=== PATIENT | male | born 1970 | race Caucasian/White ===

== ENCOUNTER 2016-11-14 07:14 | Emergency (ER) | payer MEDICARE, MEDICAID ==
[~2016-11-14] VITALS: Ht 182.9 cm; Wt 72.6 kg
[~2016-11-14 07:14] MED LIST: ESOM40CA PO; RANI150T12 PO
[2016-11-14] MEDS ORDERED: NEURONTIN (07:24)
[2016-11-14] MEDS ORDERED: ADDERALL (07:24)
[2016-11-14] MEDS ORDERED: SERT50TA14 (07:24)
[2016-11-14] MEDS ORDERED: XANAX (07:24)
[2016-11-14] MEDS ORDERED: CLINDAMYCIN HCL 150 MG CAPSULE PO ONE (08:00)
--- NOTE | 2016-11-14 08:10 | NUR ---
PT WAS EVALUATED BY DR LLANOS. PT WAS D/C TO HOME AFTER EVALUATION. D/C INSTRUCTIONS GIVEN TO THE PT.
[2016-11-14] MEDS ORDERED: CLINDAMYCIN HCL 300 MG CAPSULE ONE (08:11)
[2016-11-14 08:16] VITALS: BP 132/78
== END 2016-11-14 08:21 | disposition home or self-care (01) ==
LOC: ER 07:14
DX: L03.211 Cellulitis of face (principal); K21.9 Gastro-esophageal reflux disease without esophagitis; Z88.0 Allergy status to penicillin
CPT/HCPCS: 99283; A4663